=== PATIENT | male | born 1990 | race Caucasian/White ===

== ENCOUNTER 2021-09-04 03:34 | Emergency (ER) | payer OTHER ==
[2021-09-04] MEDS ORDERED: ZESTRIL20 MG PO (06:12)
== END 2021-09-04 06:29 | disposition home or self-care (01) ==
LOC: ER1 03:34
DX: I10 Essential (primary) hypertension (principal); R51.9 Headache, unspecified
CPT/HCPCS: 70450; 82962; 96374; 96375; 99284; J0780; J1200; J1885; J2270; J2405